=== PATIENT | female | born 1945 | race Two or more races ===

== ENCOUNTER 2024-08-02 09:58 | Outpatient (AMB) | payer MEDICAID, SELFPAY ==
[2024-08-02 10:15] VITALS: BP 144/67; PULSE 70; RESP 18; TEMP 36.5; O2SAT 95
--- NOTE | 2024-08-02 10:15 | PD.ORTHCLVIS ---
Vital signs 08/02/24 10:15 BP 144/67 H Blood Pressure Source Automatic Cuff Blood Pressure Location Right Upper Arm Position Sitting Respiration 18 Pulse 70 Pulse Source Monitor Temp 97.7 F Temp Source Temporal Artery Scan Pulse Oximetry (%) 95 Oxygen Delivery Method Room Air Med/Allergies Allergies & Medications Allergies aspirin Allergy (Mild, Verified 08/02/24 10:16) Abdominal Pain Medication Reconciliation ferrous sulfate 325 mg (65 mg iron) tablet 325 mg PO QDAY 01/12/24 [History Confirmed 08/02/24] meclizine 25 mg tablet 25 mg PO QID PRN Vertigo 01/12/24 [History Confirmed 08/02/24] pregabalin 50 mg capsule 50 mg PO BID 01/12/24 [History Confirmed 08/02/24] tramadol 50 mg tablet 50 mg PO BID PRN Pain 01/12/24 [History Confirmed 08/02/24] amlodipine 5 mg tablet 5 mg PO QDAY 07/10/24 [History Confirmed 08/02/24] atorvastatin 40 mg tablet 40 mg PO QPM 07/10/24 [History Confirmed 08/02/24] furosemide 20 mg tablet 20 mg PO QAM 07/10/24 [History Confirmed 08/02/24] acetaminophen 500 mg tablet (Acetaminophen Extra Strength) 1,000 mg (2 x 500 mg) PO Q6H PRN pain #90 tabs 07/11/24 [Rx Confirmed 08/02/24] aspirin 81 mg tablet,delayed release 81 mg PO BID #60 tabs 07/11/24 [Rx Confirmed 08/02/24] doxycycline hyclate 100 mg tablet 100 mg PO BID #14 tabs 07/11/24 [Rx Confirmed 08/02/24] gabapentin 300 mg capsule 300 mg PO .qhs #30 caps 07/11/24 [Rx Confirmed 08/02/24] oxycodone 5 mg tablet 5 mg PO Q6H PRN pain #28 tabs 07/11/24 [Rx Confirmed 08/02/24] pantoprazole 40 mg tablet,delayed release 40 mg PO QDAY #30 tabs 07/11/24 [Rx Confirmed 08/02/24] sennosides 8.6 mg-docusate sodium 50 mg tablet (Senna-S) 1 tab-cap PO QDAY #30 tabs 07/11/24 [Rx Confirmed 08/02/24] Subjective Visit Visit for: follow up visit, post op #1 and hip Immunization / Flu Flu Vaccine in the Last 12 Months: Yes Flu Vaccine Exclusion Criteria: Already Received History of Present Illness Chief complaint: 2 WEEK POST OP HIP ARTHROPLASTY Janette is doing well status post left total hip replacement. Incision looks well. She just got out of the rehab. She has minimal pain. Personal History Occupation: RETIRED Red flag PMH: none Pain Pain level (0-10): 9 Pain duration: COMES AND GOES Pain location: outside (lateral) Pain quality: sharp Pain timing: increases with activity Ambulatory data Ambulatory device: other (specify) (WHEELCHAIR ) Treatments Improvement with previous injections: No Improvement with PT: No Improvement with NSAIDS: n/a Review of Systems Review of Systems: All systems negative unless otherwise noted in HPI. Exam Exam Patient is in no acute distress and is cooperative with the examination today. Breathing is nonlabored. In no respiratory distress. Patient has no paraspinal tenderness. Spinal deformity [cannot] be appreciated. The gait of the patient is [nonantalgic] Bilateral extremities were evaluated and demonstrates sensation intact to light touch. Palpable pedal pulses are present. No significant edema is present. Bilateral knees were examined and the patient has full strength and range of motion.. Left hip incision is clean dry and intact Assessment and Plan Problem List (1) Arthritis of left hip: Status: Acute Plan: 79-year-old female with significant left hip arthritis who is also morbid obese. She is doing well status post left total hip replacement. Will see her in approximately 4 weeks with new x-rays Plan Patient is doing well status post left total hip replacement. We will see her back in 4 weeks Advanced Care Planning Discussion Advance care planning discussed with:: patient and child Office Procedures GNS Level of Care Nursing/Assessment Patient Status: Established Patient Nursing Assessment/Reassesment: Medication Reconciliation, Update PMH in EMR and Vital Signs Coordination of Care: Complex Care and Chronic Disease 1-5, Education Complex Pt/Fam, Consent,records obtained, informed consent, 1 Ins Authorization, Lab and Imaging orders, Results/Orders obtained and Staff clarify orders Special Needs: Language special needs Established Patient Charge Established Patient Point Assignment: 125 Established Patient Point Charge: EP Level 4 (120-155) Past Medical History Past Medical History Have you ever been diagnosed with any of the following: Neurological Problems Seizures: No Cardiology Problems Hypercholesterolemia: Yes Congestive Heart Failure: No Edema: Yes (legs at time) Hypertension: Yes Varicose Veins: Yes Respiratory Problems Chronic Obstructive Pulmonary Disease (COPD): No Pneumonia: Yes Smoking: No Smoking Exposure: No Stomache/Intestinal Problems Gall Bladder Disease: Yes Obesity: Yes Genital/Urinary Problems Renal Disease: No Reproductive Problems Previous Pregnancies: Yes Musculoskeletal Problems Arthritis: Yes Endocrine Problems Diabetes Mellitus Type 1: No Diabetes Mellitus Type 2: No Blood Problems Anemia: Yes Psychologic Problems Anxiety: Yes Other Problems Hospitalization: Yes (Abdominal pain. back pain) Shingles: No Falls: Yes Blood Transfusions: No Blood Transfusion Reaction: No Anesthesia Reactions: No Cancer: No
== END 2024-08-02 10:32 | disposition home or self-care (01) ==
PROVIDERS: PCP Family Medicine; Referring Provider Family Medicine; Supervising Provider Orthopaedic Surgery Adult Reconstructive Orthopaedic Surgery; Visit Provider Orthopaedic Surgery Adult Reconstructive Orthopaedic Surgery
DX: M16.12 Unilateral primary osteoarthritis, left hip (principal); E66.01 Morbid (severe) obesity due to excess calories; Z96.642 Presence of left artificial hip joint; I10 Essential (primary) hypertension; E78.00 Pure hypercholesterolemia, unspecified
CPT/HCPCS: 99214; G0463

== ENCOUNTER 2024-08-21 10:42 | Outpatient (AMB) | payer MEDICAID, SELFPAY ==
--- NOTE | 2024-08-21 11:15 | PD.ORTHCLVIS ---
Vital signs 08/21/24 11:21 Height 1.57 m Height Method Stated Weight 102.285 kg Weight Measurement Method Standing Scale BMI 41.5 BP 145/73 H Blood Pressure Source Automatic Cuff Blood Pressure Location Right Upper Arm Position Sitting Respiration 18 Pulse 73 Pulse Source Monitor Temp 98.4 F Temp Source Temporal Artery Scan Pulse Oximetry (%) 92 L Oxygen Delivery Method Room Air Med/Allergies Allergies & Medications Allergies aspirin Allergy (Mild, Verified 08/21/24 11:23) Abdominal Pain Medication Reconciliation ferrous sulfate 325 mg (65 mg iron) tablet 325 mg PO QDAY 01/12/24 [History Confirmed 08/21/24] meclizine 25 mg tablet 25 mg PO QID PRN Vertigo 01/12/24 [History Confirmed 08/21/24] pregabalin 50 mg capsule 50 mg PO BID 01/12/24 [History Confirmed 08/21/24] tramadol 50 mg tablet 50 mg PO BID PRN Pain 01/12/24 [History Confirmed 08/21/24] amlodipine 5 mg tablet 5 mg PO QDAY 07/10/24 [History Confirmed 08/21/24] atorvastatin 40 mg tablet 40 mg PO QPM 07/10/24 [History Confirmed 08/21/24] furosemide 20 mg tablet 20 mg PO QAM 07/10/24 [History Confirmed 08/21/24] acetaminophen 500 mg tablet (Acetaminophen Extra Strength) 1,000 mg (2 x 500 mg) PO Q6H PRN pain #90 tabs 07/11/24 [Rx Confirmed 08/21/24] aspirin 81 mg tablet,delayed release 81 mg PO BID #60 tabs 07/11/24 [Rx Confirmed 08/21/24] doxycycline hyclate 100 mg tablet 100 mg PO BID #14 tabs 07/11/24 [Rx Confirmed 08/21/24] gabapentin 300 mg capsule 300 mg PO .qhs #30 caps 07/11/24 [Rx Confirmed 08/21/24] pantoprazole 40 mg tablet,delayed release 40 mg PO QDAY #30 tabs 07/11/24 [Rx Confirmed 08/21/24] sennosides 8.6 mg-docusate sodium 50 mg tablet (Senna-S) 1 tab-cap PO QDAY #30 tabs 07/11/24 [Rx Confirmed 08/21/24] oxycodone 5 mg tablet 5 mg PO Q6H PRN pain #28 tabs 08/07/24 [Rx Confirmed 08/21/24] methocarbamol 500 mg tablet 500 mg PO QHS #45 tabs 08/14/24 [Rx Confirmed 08/21/24] oxycodone 5 mg tablet 5 mg PO Q6H PRN pain #28 tabs 08/20/24 [Rx Confirmed 08/21/24] Subjective Visit Visit for: follow up visit and hip (LEFT) Immunization / Flu Flu Vaccine in the Last 12 Months: Yes Flu Vaccine Exclusion Criteria: Already Received History of Present Illness Chief complaint: REQ RX REFILLS Janette is doing well status post left total hip replacement. Incision looks well. She has pain that starts in her back and radiates down her leg. We discussed that this is likely related to her spine Personal History Occupation: RETIRED Red flag PMH: none Pain Pain level (0-10): 8 Pain duration: CONSTANT Pain location: inside (medial) Pain quality: aching Pain timing: night Ambulatory data Ambulatory device: walker Treatments Improvement with previous injections: No Improvement with PT: No Improvement with NSAIDS: no Review of Systems Review of Systems: All systems negative unless otherwise noted in HPI. Exam Exam Patient is in no acute distress and is cooperative with the examination today. Breathing is nonlabored. In no respiratory distress. Patient has no paraspinal tenderness. Spinal deformity [cannot] be appreciated. The gait of the patient is [nonantalgic] Bilateral extremities were evaluated and demonstrates sensation intact to light touch. Palpable pedal pulses are present. No significant edema is present. Bilateral knees were examined and the patient has full strength and range of motion.. Left hip incision is clean dry and intact Assessment and Plan Problem List (1) Arthritis of left hip: Status: Acute Plan: 79-year-old female with significant left hip arthritis who is also morbid obese. She is doing well status post left total hip replacement. Her groin pain is gone but she has pain that starts in her back and radiates down her leg. We discussed with her that this is likely related to her spine and she has had multiple surgeries for her spine in the past. We recommend that she see a pain management doctor to get reevaluated for her spine. She reports that her hip feels great. We will order repeat x-rays and see her in approximately 4 weeks Plan Patient is doing well status post left total hip replacement. Advanced Care Planning Discussion Advance care planning discussed with:: patient Office Procedures GNS Level of Care Nursing/Assessment Patient Status: Established Patient Nursing Assessment/Reassesment: Medication Reconciliation, Update PMH in EMR and Vital Signs Coordination of Care: Complex Care and Chronic Disease 1-5, Education Complex Pt/Fam, Consent,records obtained, informed consent, 1 Ins Authorization and Staff clarify orders Special Needs: Language special needs Established Patient Charge Established Patient Point Assignment: 105 Established Patient Point Charge: EP Level 3 (80-115) Past Medical History Past Medical History Have you ever been diagnosed with any of the following: Neurological Problems Seizures: No Cardiology Problems Hypercholesterolemia: Yes Congestive Heart Failure: No Edema: Yes (legs at time) Hypertension: Yes Varicose Veins: Yes Respiratory Problems Chronic Obstructive Pulmonary Disease (COPD): No Pneumonia: Yes Smoking: No Smoking Exposure: No Stomache/Intestinal Problems Gall Bladder Disease: Yes Obesity: Yes Genital/Urinary Problems Renal Disease: No Reproductive Problems Previous Pregnancies: Yes Musculoskeletal Problems Arthritis: Yes Endocrine Problems Diabetes Mellitus Type 1: No Diabetes Mellitus Type 2: No Blood Problems Anemia: Yes Psychologic Problems Anxiety: Yes Other Problems Hospitalization: Yes (Abdominal pain. back pain) Shingles: No Falls: Yes Blood Transfusions: No Blood Transfusion Reaction: No Anesthesia Reactions: No Cancer: No
[2024-08-21 11:21] VITALS: BP 145/73; PULSE 73; RESP 18; TEMP 36.9; O2SAT 92; BMI 41.5
== END 2024-08-21 11:50 | disposition home or self-care (01) ==
LOC: HODSRG 10:42
PROVIDERS: PCP Family Medicine; Referring Provider Family Medicine; Supervising Provider Orthopaedic Surgery Adult Reconstructive Orthopaedic Surgery; Visit Provider Orthopaedic Surgery Adult Reconstructive Orthopaedic Surgery
DX: M16.12 Unilateral primary osteoarthritis, left hip (principal); E66.01 Morbid (severe) obesity due to excess calories; Z68.41 Body mass index [BMI] 40.0-44.9, adult; Z96.642 Presence of left artificial hip joint; I10 Essential (primary) hypertension; E78.00 Pure hypercholesterolemia, unspecified
CPT/HCPCS: 99213; G0463

== ENCOUNTER 2024-10-12 14:05 | Outpatient (AMB) | payer MEDICAID, SELFPAY ==
--- NOTE | 2024-10-12 15:08 | ORTHONT_ITS ---
Vital signs 10/12/24 15:14 Height 1.57 m Height Method Stated Weight 100.414 kg Weight Measurement Method Standing Scale BMI 40.7 BP 138/77 H Blood Pressure Source Automatic Cuff Blood Pressure Location Left Upper Arm Position Sitting Respiration 19 Pulse 70 Pulse Source Monitor Temp 97.6 F Temp Source Temporal Artery Scan Pulse Oximetry (%) 95 Oxygen Delivery Method Room Air Med/Allergies Allergies & Medications Allergies aspirin Allergy (Mild, Verified 10/12/24 15:14) Abdominal Pain Medication Reconciliation ferrous sulfate 325 mg (65 mg iron) tablet 325 mg PO QDAY 01/12/24 [History Confirmed 10/12/24] meclizine 25 mg tablet 25 mg PO QID PRN Vertigo 01/12/24 [History Confirmed 10/12/24] pregabalin 50 mg capsule 50 mg PO BID 01/12/24 [History Confirmed 10/12/24] tramadol 50 mg tablet 50 mg PO BID PRN Pain 01/12/24 [History Confirmed 10/12/24] amlodipine 5 mg tablet 5 mg PO QDAY 07/10/24 [History Confirmed 10/12/24] atorvastatin 40 mg tablet 40 mg PO QPM 07/10/24 [History Confirmed 10/12/24] furosemide 20 mg tablet 20 mg PO QAM 07/10/24 [History Confirmed 10/12/24] acetaminophen 500 mg tablet (Acetaminophen Extra Strength) 1,000 mg (2 x 500 mg) PO Q6H PRN pain #90 tabs 07/11/24 [Rx Confirmed 10/12/24] aspirin 81 mg tablet,delayed release 81 mg PO BID #60 tabs 07/11/24 [Rx Confirmed 10/12/24] doxycycline hyclate 100 mg tablet 100 mg PO BID #14 tabs 07/11/24 [Rx Confirmed 10/12/24] gabapentin 300 mg capsule 300 mg PO .qhs #30 caps 07/11/24 [Rx Confirmed 10/12/24] pantoprazole 40 mg tablet,delayed release 40 mg PO QDAY #30 tabs 07/11/24 [Rx Confirmed 10/12/24] sennosides 8.6 mg-docusate sodium 50 mg tablet (Senna-S) 1 tab-cap PO QDAY #30 tabs 07/11/24 [Rx Confirmed 10/12/24] oxycodone 5 mg tablet 5 mg PO Q6H PRN pain #28 tabs 08/07/24 [Rx Confirmed 10/12/24] methocarbamol 500 mg tablet 500 mg PO QHS #45 tabs 08/14/24 [Rx Confirmed 10/12/24] oxycodone 5 mg tablet 5 mg PO Q6H PRN pain #28 tabs 08/20/24 [Rx Confirmed 10/12/24] pregabalin 75 mg capsule 75 mg PO BID #60 caps 08/26/24 [Rx Confirmed 10/12/24] Exam Exam Patient is in no acute distress and is cooperative with the examination today. Breathing is nonlabored. In no respiratory distress. Patient has no paraspinal tenderness. Spinal deformity [cannot] be appreciated. The gait of the patient is [nonantalgic] Bilateral extremities were evaluated and demonstrates sensation intact to light touch. Palpable pedal pulses are present. No significant edema is present. Bilateral knees were examined and the patient has full strength and range of motion.. Left hip incision is clean dry and intact Assessment and Plan Problem List (1) Arthritis of left hip: Status: Acute Plan: 79-year-old female with significant left hip arthritis who is also morbid obese. She is doing well status post left total hip replacement. Her groin pain is gone And her x-rays are back We will see her back in 12 weeks. X-rays from [facility] well. Plan Patient is doing well status post left total hip replacement. Advanced Care Planning Discussion Advance care planning discussed with:: patient Office Procedures GNS Level of Care Nursing/Assessment Patient Status: Established Patient Nursing Assessment/Reassesment: Medication Reconciliation, Update PMH in EMR and Vital Signs Coordination of Care: Complex Care and Chronic Disease 1-5, Education Complex Pt/Fam, Consent,records obtained, informed consent, Results/Orders obtained and Staff clarify orders Special Needs: Language special needs Established Patient Charge Established Patient Point Assignment: 95 Established Patient Point Charge: EP Level 3 (80-115) MA Intake Visit Data Collection New Patient or Established: Established Patient (seen at [facility] within 3 years) Reason for Visit:: F/U HIP TKA Seen by Clinical Staff ONLY (RN/MA): No 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 PCP or OBGYN visit in last 3 months: Yes Hx Now: No Do You Feel Safe at Home: Yes Authorities Contacted: N/A Questionairres Past Medical History Past Medical History Have you ever been diagnosed with any of the following: Neurological Problems Seizures: No Cardiology Problems Hypercholesterolemia: Yes Congestive Heart Failure: No Edema: Yes (legs at time) Hypertension: Yes Varicose Veins: Yes Respiratory Problems Chronic Obstructive Pulmonary Disease (COPD): No Pneumonia: Yes Smoking: No Smoking Exposure: No Stomache/Intestinal Problems Gall Bladder Disease: Yes Obesity: Yes Genital/Urinary Problems Renal Disease: No Reproductive Problems Previous Pregnancies: Yes Musculoskeletal Problems Arthritis: Yes Endocrine Problems Diabetes Mellitus Type 1: No Diabetes Mellitus Type 2: No Blood Problems Anemia: Yes Psychologic Problems Anxiety: Yes Other Problems Hospitalization: Yes (Abdominal pain. back pain) Shingles: No Falls: Yes Blood Transfusions: No Blood Transfusion Reaction: No Anesthesia Reactions: No Cancer: No Subjective Visit Visit for: follow up visit and hip Immunization / Flu Flu Vaccine in the Last 12 Months: No Flu Vaccine Exclusion Criteria: No Exclusion Criteria History of Present Illness Chief complaint: left hip pain Melany is doing well status post left total hip replacement. Incision looks well. She isdoingwell and has minimal pain Pain Pain level (0-10): 0 Ambulatory data Ambulatory device: walker Treatments Improvement with previous injections: No Improvement with PT: No Improvement with NSAIDS: no Review of Systems Review of Systems: All systems negative unless otherwise noted in HPI.
[2024-10-12 15:14] VITALS: BP 138/77; PULSE 70; RESP 19; TEMP 36.4; O2SAT 95; BMI 40.7
== END 2024-10-12 15:15 | disposition home or self-care (01) ==
PROVIDERS: PCP Family Medicine; Referring Provider Family Medicine; Supervising Provider Orthopaedic Surgery Adult Reconstructive Orthopaedic Surgery; Visit Provider Orthopaedic Surgery Adult Reconstructive Orthopaedic Surgery
DX: M16.12 Unilateral primary osteoarthritis, left hip (principal); E66.01 Morbid (severe) obesity due to excess calories; Z68.41 Body mass index [BMI] 40.0-44.9, adult; I10 Essential (primary) hypertension; E78.00 Pure hypercholesterolemia, unspecified
CPT/HCPCS: 99213; G0463

== ENCOUNTER 2025-02-12 14:21 | Outpatient (AMB) | payer MEDICAID, SELFPAY ==
--- NOTE | 2025-02-12 14:34 | PD.ORTHCLVIS ---
Vital signs 02/12/25 14:35 Height 1.57 m Height Method Stated Weight 99.365 kg Weight Measurement Method Standing Scale BMI 40.3 BP 155/69 H Blood Pressure Source Automatic Cuff Blood Pressure Location Left Upper Arm Position Sitting Respiration 18 Pulse 77 Pulse Source Monitor Temp 97.8 F Temp Source Temporal Artery Scan Pulse Oximetry (%) 93 L Oxygen Delivery Method Room Air Med/Allergies Allergies & Medications Allergies aspirin Allergy (Mild, Verified 02/12/25 14:35) Abdominal Pain Medication Reconciliation ferrous sulfate 325 mg (65 mg iron) tablet 325 mg PO QDAY 01/12/24 [History Confirmed 02/12/25] meclizine 25 mg tablet 25 mg PO QID PRN Vertigo 01/12/24 [History Confirmed 02/12/25] pregabalin 50 mg capsule 50 mg PO BID 01/12/24 [History Confirmed 02/12/25] tramadol 50 mg tablet 50 mg PO BID PRN Pain 01/12/24 [History Confirmed 02/12/25] amlodipine 5 mg tablet 5 mg PO QDAY 07/10/24 [History Confirmed 02/12/25] atorvastatin 40 mg tablet 40 mg PO QPM 07/10/24 [History Confirmed 02/12/25] furosemide 20 mg tablet 20 mg PO QAM 07/10/24 [History Confirmed 02/12/25] acetaminophen 500 mg tablet (Acetaminophen Extra Strength) 1,000 mg (2 x 500 mg) PO Q6H PRN pain #90 tabs 07/11/24 [Rx Confirmed 02/12/25] aspirin 81 mg tablet,delayed release 81 mg PO BID #60 tabs 07/11/24 [Rx Confirmed 02/12/25] doxycycline hyclate 100 mg tablet 100 mg PO BID #14 tabs 07/11/24 [Rx Confirmed 02/12/25] gabapentin 300 mg capsule 300 mg PO .qhs #30 caps 07/11/24 [Rx Confirmed 02/12/25] pantoprazole 40 mg tablet,delayed release 40 mg PO QDAY #30 tabs 07/11/24 [Rx Confirmed 02/12/25] sennosides 8.6 mg-docusate sodium 50 mg tablet (Senna-S) 1 tab-cap PO QDAY #30 tabs 07/11/24 [Rx Confirmed 02/12/25] oxycodone 5 mg tablet 5 mg PO Q6H PRN pain #28 tabs 08/07/24 [Rx Confirmed 02/12/25] methocarbamol 500 mg tablet 500 mg PO QHS #45 tabs 08/14/24 [Rx Confirmed 02/12/25] oxycodone 5 mg tablet 5 mg PO Q6H PRN pain #28 tabs 08/20/24 [Rx Confirmed 02/12/25] pregabalin 75 mg capsule 75 mg PO BID #60 caps 08/26/24 [Rx Confirmed 02/12/25] Exam Exam Patient is in no acute distress and is cooperative with the examination today. Breathing is nonlabored. In no respiratory distress. Patient has no paraspinal tenderness. Spinal deformity [cannot] be appreciated. The gait of the patient is [nonantalgic] Bilateral extremities were evaluated and demonstrates sensation intact to light touch. Palpable pedal pulses are present. No significant edema is present. Bilateral knees were examined and the patient has full strength and range of motion.. Left hip incision is clean dry and intact Assessment and Plan Problem List (1) Arthritis of left hip: Status: Acute Plan: 79-year-old female with significant left hip arthritis who is also morbid obese. She is doing well status post left total hip replacement. Her groin pain is gone And she is very happy. Her last x-rays look great. We will see her in approximately 6 months for routine follow-up. Plan Patient is doing well status post left total hip replacement. Advanced Care Planning Discussion Advance care planning discussed with:: patient Office Procedures GNS Level of Care Nursing/Assessment Patient Status: Established Patient Nursing Assessment/Reassesment: Medication Reconciliation, Update PMH in EMR and Vital Signs Coordination of Care: Complex Care and Chronic Disease 1-5, Education Complex Pt/Fam, Consent,records obtained, informed consent, Results/Orders obtained and Staff clarify orders Special Needs: Language special needs Established Patient Charge Established Patient Point Assignment: 95 Established Patient Point Charge: EP Level 3 (80-115) MA Intake Visit Data Collection New Patient or Established: Established Patient (seen at [facility] within 3 years) Reason for Visit:: FOLLOW UP HIP Seen by Clinical Staff ONLY (RN/MA): No 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 PCP or OBGYN visit in last 3 months: Yes Hx Now: No Do You Feel Safe at Home: Yes Authorities Contacted: N/A Questionairres Past Medical History Past Medical History Have you ever been diagnosed with any of the following: Neurological Problems Seizures: No Cardiology Problems Hypercholesterolemia: Yes Congestive Heart Failure: No Edema: Yes (legs at time) Hypertension: Yes Varicose Veins: Yes Respiratory Problems Chronic Obstructive Pulmonary Disease (COPD): No Pneumonia: Yes Smoking: No Smoking Exposure: No Stomache/Intestinal Problems Gall Bladder Disease: Yes Obesity: Yes Genital/Urinary Problems Renal Disease: No Reproductive Problems Previous Pregnancies: Yes Musculoskeletal Problems Arthritis: Yes Endocrine Problems Diabetes Mellitus Type 1: No Diabetes Mellitus Type 2: No Blood Problems Anemia: Yes Psychologic Problems Anxiety: Yes Other Problems Hospitalization: Yes (Abdominal pain. back pain) Shingles: No Falls: Yes Blood Transfusions: No Blood Transfusion Reaction: No Anesthesia Reactions: No Cancer: No Subjective Visit Visit for: follow up visit and hip Immunization / Flu Flu Vaccine in the Last 12 Months: No Flu Vaccine Exclusion Criteria: No Exclusion Criteria History of Present Illness Chief complaint: left hip pain Melany is doing well status post left total hip replacement. Incision looks well. She is doingwell and has minimal pain. She is using a walker for long distances but reports minimal pain Pain Pain level (0-10): 0 Associated signs & symptoms: none Ambulatory data Ambulatory device: walker Treatments Improvement with previous injections: No Improvement with PT: No Improvement with NSAIDS: no Review of Systems Review of Systems: All systems negative unless otherwise noted in HPI.
[2025-02-12 14:35] VITALS: BP 155/69; PULSE 77; RESP 18; TEMP 36.6; O2SAT 93; BMI 40.3
== END 2025-02-12 14:46 | disposition home or self-care (01) ==
LOC: HODSRG 14:21
PROVIDERS: PCP Family Medicine; Referring Provider Family Medicine; Supervising Provider Orthopaedic Surgery Adult Reconstructive Orthopaedic Surgery; Visit Provider Orthopaedic Surgery Adult Reconstructive Orthopaedic Surgery
DX: M16.12 Unilateral primary osteoarthritis, left hip (principal); E66.01 Morbid (severe) obesity due to excess calories; Z68.41 Body mass index [BMI] 40.0-44.9, adult; Z96.642 Presence of left artificial hip joint; I10 Essential (primary) hypertension; E78.00 Pure hypercholesterolemia, unspecified
CPT/HCPCS: 99213; G0463

== ENCOUNTER 2025-08-13 14:51 | Outpatient (AMB) | payer MEDICAID, SELFPAY ==
--- NOTE | 2025-08-13 15:15 | PD.ORTHCLVIS ---
Vital signs 08/13/25 15:16 Height 1.57 m Height Method Stated Weight 104.95 kg Weight Measurement Method Standing Scale BMI 42.5 BP 151/76 H Blood Pressure Source Automatic Cuff Blood Pressure Location Left Upper Arm Position Sitting Respiration 18 Pulse 96 Pulse Source Monitor Temp 98.3 F Temp Source Temporal Artery Scan Pulse Oximetry (%) 96 Oxygen Delivery Method Room Air Med/Allergies Allergies & Medications Allergies aspirin Allergy (Mild, Verified 08/13/25 15:16) Abdominal Pain Medication Reconciliation ferrous sulfate 325 mg (65 mg iron) tablet 325 mg PO QDAY 01/12/24 [History Confirmed 08/13/25] meclizine 25 mg tablet 25 mg PO QID PRN Vertigo 01/12/24 [History Confirmed 08/13/25] pregabalin 50 mg capsule 50 mg PO BID 01/12/24 [History Confirmed 08/13/25] tramadol 50 mg tablet 50 mg PO BID PRN Pain 01/12/24 [History Confirmed 08/13/25] amlodipine 5 mg tablet 5 mg PO QDAY 07/10/24 [History Confirmed 08/13/25] atorvastatin 40 mg tablet 40 mg PO QPM 07/10/24 [History Confirmed 08/13/25] furosemide 20 mg tablet 20 mg PO QAM 07/10/24 [History Confirmed 08/13/25] acetaminophen 500 mg tablet (Acetaminophen Extra Strength) 1,000 mg (2 x 500 mg) PO Q6H PRN pain #90 tabs 07/11/24 [Rx Confirmed 08/13/25] aspirin 81 mg tablet,delayed release 81 mg PO BID #60 tabs 07/11/24 [Rx Confirmed 08/13/25] doxycycline hyclate 100 mg tablet 100 mg PO BID #14 tabs 07/11/24 [Rx Confirmed 08/13/25] gabapentin 300 mg capsule 300 mg PO .qhs #30 caps 07/11/24 [Rx Confirmed 08/13/25] pantoprazole 40 mg tablet,delayed release 40 mg PO QDAY #30 tabs 07/11/24 [Rx Confirmed 08/13/25] sennosides 8.6 mg-docusate sodium 50 mg tablet (Senna-S) 1 tab-cap PO QDAY #30 tabs 07/11/24 [Rx Confirmed 08/13/25] oxycodone 5 mg tablet 5 mg PO Q6H PRN pain #28 tabs 08/07/24 [Rx Confirmed 08/13/25] methocarbamol 500 mg tablet 500 mg PO QHS #45 tabs 08/14/24 [Rx Confirmed 08/13/25] oxycodone 5 mg tablet 5 mg PO Q6H PRN pain #28 tabs 08/20/24 [Rx Confirmed 08/13/25] pregabalin 75 mg capsule 75 mg PO BID #60 caps 08/26/24 [Rx Confirmed 08/13/25] Exam Exam Patient is in no acute distress and is cooperative with the examination today. Breathing is nonlabored. In no respiratory distress. Patient has no paraspinal tenderness. Spinal deformity [cannot] be appreciated. The gait of the patient is [nonantalgic] Bilateral extremities were evaluated and demonstrates sensation intact to light touch. Palpable pedal pulses are present. No significant edema is present. Bilateral knees were examined and the patient has full strength and range of motion.. Left hip incision is clean dry and intact Assessment and Plan Problem List (1) Arthritis of left hip: Status: Acute Plan: 79-year-old female with significant left hip arthritis who is also morbid obese. She is doing well status post left total hip replacement. Her groin pain is gone And she is very happy. Her last x-rays look great. We will see her in approximately 6 months for routine follow-up. Plan Patient is doing well status post left total hip replacement. Advanced Care Planning Discussion Advance care planning discussed with:: patient Office Procedures GNS Level of Care Nursing/Assessment Patient Status: Established Patient Nursing Assessment/Reassesment: Medication Reconciliation, Update PMH in EMR and Vital Signs Coordination of Care: Complex Care and Chronic Disease 1-5, Education Complex Pt/Fam, Consent,records obtained, informed consent, Results/Orders obtained and Staff clarify orders Special Needs: Language special needs Established Patient Charge Established Patient Point Assignment: 95 Established Patient Point Charge: EP Level 3 (80-115) MA Intake Visit Data Collection New Patient or Established: Established Patient (seen at [facility] within 3 years) Reason for Visit:: 1 YEAR F/U HIP SX Seen by Clinical Staff ONLY (RN/MA): No 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 PCP or OBGYN visit in last 3 months: Yes Hx Now: No Do You Feel Safe at Home: Yes Authorities Contacted: N/A Questionairres Past Medical History Past Medical History Have you ever been diagnosed with any of the following: Neurological Problems Seizures: No Cardiology Problems Hypercholesterolemia: Yes Congestive Heart Failure: No Edema: Yes (legs at time) Hypertension: Yes Varicose Veins: Yes Respiratory Problems Chronic Obstructive Pulmonary Disease (COPD): No Pneumonia: Yes Smoking: No Smoking Exposure: No Stomache/Intestinal Problems Gall Bladder Disease: Yes Obesity: Yes Genital/Urinary Problems Renal Disease: No Reproductive Problems Previous Pregnancies: Yes Musculoskeletal Problems Arthritis: Yes Endocrine Problems Diabetes Mellitus Type 1: No Diabetes Mellitus Type 2: No Blood Problems Anemia: Yes Psychologic Problems Anxiety: Yes Other Problems Hospitalization: Yes (Abdominal pain. back pain) Shingles: No Falls: Yes Blood Transfusions: No Blood Transfusion Reaction: No Anesthesia Reactions: No Cancer: No Subjective Visit Visit for: follow up visit and hip Immunization / Flu Flu Vaccine in the Last 12 Months: No Flu Vaccine Exclusion Criteria: Refused by Patient History of Present Illness Chief complaint: 1 YEAR F/U HIP SX Melany is doing well status post left total hip replacement. Incision looks well. She is doingwell and has minimal pain. She is using a walker for long distances but reports minimal pain Personal History Red flag PMH: none Pain Pain level (0-10): 0 Associated signs & symptoms: none Ambulatory data Ambulatory device: walker Treatments Number of previous injections: 0 Improvement with previous injections: No Number of Physical Therapy sessions: 0 Improvement with PT: No Improvement with NSAIDS: no Review of Systems Review of Systems: All systems negative unless otherwise noted in HPI.
[2025-08-13 15:16] VITALS: BP 151/76; PULSE 96; RESP 18; TEMP 36.8; O2SAT 96; BMI 42.5
--- NOTE | 2025-08-13 15:18 | XR_ITS ---
Examination: Left hip AP, lateral, AP pelvis 3 views Technique: Hip AP lateral, AP pelvis, 3 views Exam date and time: August 13, 2025, 1337 hours INDICATIONS: Status post left hip replacement FINDINGS: Severe osteopenia Total left hip arthroplasty. Satisfactory alignment No loosening of the prosthetic components Mild right hip osteoarthritis Bones of the pelvis intact Partial visualization transpedicular lower lumbar fixation screws IMPRESSION: Total left hip arthroplasty with satisfactory alignment.
== END 2025-08-13 15:29 | disposition home or self-care (01) ==
PROVIDERS: PCP Family Medicine; Referring Provider Family Medicine; Supervising Provider Orthopaedic Surgery Adult Reconstructive Orthopaedic Surgery; Visit Provider Orthopaedic Surgery Adult Reconstructive Orthopaedic Surgery
DX: Z47.1 Aftercare following joint replacement surgery (principal); Z96.642 Presence of left artificial hip joint; I10 Essential (primary) hypertension; E66.01 Morbid (severe) obesity due to excess calories; Z68.41 Body mass index [BMI] 40.0-44.9, adult
CPT/HCPCS: 73502; 99213; G0463